=== PATIENT | male | born 1965 | race Caucasian/White ===

== ENCOUNTER 2017-01-25 15:51 | Emergency (ER) | payer BC ==
[~2017-01-25] VITALS: Ht 160 cm; Wt 67.3 kg
[~2017-01-25 15:51] MED LIST: CHIA1POW PO; LEVO-14 PO
[2017-01-25 15:56] VITALS: TEMP 36.7; Ht 160 cm; Wt 67.3 kg
--- NOTE | 2017-01-25 16:28 | EMERGENCY ROOM VISIT NOTE ---
History First contact with patient: 16:01 Chief Complaint: SORETHROAT Stated Complaint: SORETHROAT,COUGH History of Present Illness The patient is a 51 year old male who presents to the Emergency Room via private vehicle with complaints of "sore throat, cough and cold. The patient states that he recently traveled to [place], for business when he notes that he developed a sore throat and cough. This has been persistent despite his trial of Mucinex. He states this past Saturday he return to the [place], with persistent symptoms. He has been taking Mucinex 600 mg twice a day without relief. He states this normally works for him. He denies any fevers, chills, night sweats, nausea, vomiting, constipation, diarrhea, chest pain, shortness of breath. Review of Systems A complete 10-point Review of Systems was discussed with the patient, with pertinent positives and negatives listed in the History of Present Illness. All remaining Review of Systems questions can be considered negative unless otherwise specified. Past Medical/Surgical History No pertinent. Social History Smoking Status: Never Smoker Marital Status: Occupation Status: employed Current/Historical Medications Scheduled Azithromycin (Zithromax), 1 PKT PO UD Bhupendra Seed (Bhupendra Seed), 1 TBS PO QAM Levocetirizine Dihydrochloride (Levocetirizine Dihydrochl), 1 TAB PO HS Physical Exam Vital Signs Date Time Temp Pulse Resp B/P (MAP) Pulse Ox O2 Delivery O2 Flow Rate FiO2 01/25/17 17:25 73 18 128/78 97 01/25/17 15:56 36.7 76 18 138/81 96 Room Air Physical Exam VITAL SIGNS - Vital signs and nursing notes were reviewed. Stable. Afebrile. GENERAL -51-year-old male appearing his stated age who is in no acute distress. Communicates well with provider and answers questions appropriately. SKIN - Without rashes. HEAD - NC/AT. EYES - PERRL with EOMI bilaterally. Sclera anicteric. EARS - No deformities of external structures noted on gross examination bilaterally. No pain elicited with palpation of the tragus bilaterally. External auditory canals without discharge or otorrhea. Tympanic membranes pearly cuellar without retraction or bulging. No fluid or purulent material visualized behind the TM. Handle of malleus, umbo, cone of light, pars tensa/ flaccid all easily visualized. NOSE - Midline and without cyanosis. No epistaxis or purulent drainage noted. Septum midline without deviation or septal hematoma noted. MOUTH/OROPHARYNX - Without perioral cyanosis. Buccal mucosa pink and moist and without leukoplakia. Tongue midline with equal elevation of palate bilaterally. No tonsillar hypertrophy, erythema, or exudates noted. Fair dentition noted. NECK - Neck with FROM. Supple to palpation. Slight lymphadenopathy noted. No nuchal rigidity. LUNGS - Chest wall symmetric without accessory muscle use, intercostals retractions, or central cyanosis. Normal vesicular breath sounds CTA B/L. No wheezes, rales, or rhonchi appreciated. CARDIAC - RRR with S1/S2. No murmur, rubs, or gallops appreciated. PSYCH - A&O. Pt is very pleasant and interacts well with examiner. Medical Decision & Procedures ER Provider Diagnostic Interpretation: CHEST 2 VIEWS ROUTINE HISTORY: 51 years-old Male Cough, productive COMPARISON: Chest radiograph 03/10/2014 TECHNIQUE: Frontal and lateral views of the chest FINDINGS: Cardiomediastinal and hilar silhouettes are within normal limits. There is atherosclerosis of the aorta. There is no pneumothorax, pleural effusion or focal airspace consolidation. There is no overt pulmonary edema. The bones of the chest appear grossly intact. Mild degenerative changes involve the shoulders. IMPRESSION: No acute cardiopulmonary process. The above report was generated using voice recognition software. It may contain grammatical, syntax or spelling errors. Electronically signed by: Andrade Baig M.D. 01/25/2017 4:50 PM Dictated Date/Time: 01/25/2017 4:49 PM Medical Decision Patient was seen and evaluated as above. After obtaining a thorough history and physical examination rapid strep was obtained, an x-ray was also obtained. No evidence of pneumonia on examination. No evidence of pneumonia on chest x- ray. No acute cardiopulmonary process. At this time believe the patient is most likely experiencing either seasonal allergies, or early bronchitis. For that reason I will write him a short course of antibiotics, azithromycin. He is to take these if his symptoms progress beyond the next day or so. I informed him if his symptoms progress to the ten-day dale he is to take the antibiotic. His previous laboratory results were reviewed, no indication to renally adjusted this medication. He is to follow-up with his family doctor regarding today's visit. He was educated upon worrisome symptoms which to return, had questions about discharge, and was discharged home in good condition. In evaluation treatment this patient following differential diagnoses were entertained: Bronchitis, pneumonia, strep throat, viral pharyngitis, seasonal allergies, among others. Impression Primary Impression: Sore throat Additional Impression: Cough Departure Information Dispostion Home / Self-Care Condition GOOD Prescriptions Azithromycin (ZITHROMAX) 250 Mg Tab 1 PKT PO UD for 5 Days, #6 TAB Prov: Alonso Nam PA-C 01/25/17 Referrals Jt Mancini M.D. (PCP) Patient Instructions [facility] Additional Instructions You were seen in the emergency department for your sore throat. The results of your rapid strep screen were found to be negative. You will be contacted in 48- 72 hrs if the results of your culture are found to be positive and any change in antibiotics is necessary. You were prescribed Azithromycin to be taken as prescribed. 500mg on day 1 then 250mg on days 2-5. This is an antibiotic. All antibiotics have the potential to cause diarrhea. Stop this medication and contact a medical provider if you were to develop any significant adverse side effects including: wheezing, shortness of breath, passing out, vomiting, or a diffuse rash. Always take antibiotics as directed and COMPLETE the ENTIRE course regardless of the improvement of your symptoms. For pain and fever control, you can use the following [id number] medicines (if >12 yo): - Regular strength (325mg/tab) Tylenol (acetaminophen) 2 tabs every 4-6 hours as needed. Do not exceed 12 tablets in a 24 hour period. Avoid taking more than 3 grams (3000 mg) of Tylenol per day. This includes any other sources of acetaminophen you may take on a regular basis. - For best results, alternate dosing of Tylenol and Advil. In addition to your prescribed medications, you can also use the following home remedies: - Warm salt-water gargles 3 times per day can soothe your throat and help to fight infection. - Warm tea with honey can soothe your throat. Return to the emergency department if your symptoms persist or worsen over the next 2-3 days despite treatment course outlined above. Return to the emergency department if you develop the following symptoms of: inability to swallow solids , liquids, or drool; excessive wheezing or inability to catch your breath; or intractable fever or pain. Follow up with your primary care provider in 2-3 days from today's emergency department visit. Please return to the emergency department for new/concerning symptoms. Problem Qualifiers
--- NOTE | 2017-01-25 16:52 | DIAGNOSTIC IMAGING REPORT ---
CHEST 2 VIEWS ROUTINE HISTORY: 51 years-old Male Cough, productive COMPARISON: Chest radiograph 03/10/2014 TECHNIQUE: Frontal and lateral views of the chest FINDINGS: Cardiomediastinal and hilar silhouettes are within normal limits. There is atherosclerosis of the aorta. There is no pneumothorax, pleural effusion or focal airspace consolidation. There is no overt pulmonary edema. The bones of the chest appear grossly intact. Mild degenerative changes involve the shoulders. IMPRESSION: No acute cardiopulmonary process. The above report was generated using voice recognition software. It may contain grammatical, syntax or spelling errors. Electronically signed by: Andrade Baig M.D. 01/25/2017 4:50 PM Dictated Date/Time: 01/25/2017 4:49 PM
[2017-01-25] MEDS ORDERED: AZIT250T5 PO (17:18)
[2017-01-25 17:25] VITALS: BP 128/78; PULSE 73; O2SAT 97
== END 2017-01-25 17:25 | disposition home or self-care (01) ==
LOC: C.EDB 15:53 → C.EDD 17:25
DX: J02.9 Acute pharyngitis, unspecified (principal); R05 Cough; Z79.899 Other long term (current) drug therapy

== ENCOUNTER 2023-08-17 00:10 | Observation (INO) ==
[2023-08-17 02:19] LABS: Basophils # (auto) 0.04 K/uL (0.00-0.20); Basophils % (auto) 0.7 %; Eosinophils # (auto) 0.45 K/uL (0.00-0.50); Eosinophils % (auto) 7.8 %; Hematocrit (blood only) 41.4 % (42.0-52.0); Hemoglobin 14.4 g/dl (14.0-18.0); Immature Granulocytes # (auto) 0.01 K/uL (0.01-0.20); Immature Granulocytes % (auto) 0.2 %; Lymphocytes # (auto) 1.67 K/uL (1.20-3.40); Lymphocytes % (auto) 28.9 %; Mean Corpuscular Hemoglobin 31.3 pg (25.0-34.0); Mean Corpuscular Hgb Conc 34.8 g/dL (32.0-36.0); Mean Platelet Volume 9.2 fL (9.4-12.4); Monocytes # (auto) 0.52 K/uL (0.11-0.59); Neutrophils # (auto) 3.09 K/uL (1.40-6.50); Neutrophils % (auto) 53.4 %; Platelet Count 224 K/uL (130-400); RDW Coefficient of Variation 13.1 % (11.5-14.5); White Blood Count 5.78 K/ul (4.8-10.8)
[2023-08-17 02:32] LABS: Albumin Globulin Ratio 1.6 (0.9-2); Albumin Level 4.1 gm/dl (3.4-5.0); BUN Creatinine Ratio 19.8 (10-20); Bilirubin,Total 0.7 mg/dl (0.2-1.0); Calcium 8.7 mg/dl (8.6-10.3); Creatinine Clr Calc Pharmacy 61.1 ml/min; Est GFR (African American) 89.2 ml/min; Globulin 2.6 gm/dl (2.5-4.0); Potassium 3.7 mmol/L (3.5-5.1); Total Protein 6.7 gm/dl (6.0-8.3)
[2023-08-17 02:38] LABS: Troponin I High Sensitivity 6.8 pg/ml (0-20)
[2023-08-17] MEDS: OPTIRAY 320 125ml IV ONE (03:09)
--- NOTE | 2023-08-17 05:23 | Emergency Department Note ---
Impression & Plan [facility]ient ischemic attack[facility] NAME: ANDI MITCHELL AGE: 57 SEX: Male INFORMANT: Patient ED PROVIDER(S): Danii Penny DO CHIEF COMPLAINT: Right arm numbness and facial numbness PLAN: Disposition: Admit to the [facility] MEDICAL DECISION MAKING: This is a 57-year-old male patient who presents to the emergency department complaining of numbness to his right arm and face that was very mild and has since resolved. He denies ever having an episode of numbness like this in the past. He does give a history of some muscle spasms/twitches that have been occurring in his left shoulder/left upper extremity for which he is scheduled to have an EMG on August 27. CT scan of the brain, CTA of the brain, and CTA of the neck were all negative for any acute findings. Laboratory studies revealed a glucose of 118. White blood cell count was normal. H&H were normal. Renal function was normal. Troponin was negative. Care/management discussed with: None Level of care consideration(s): After review of the information above and other included data, I feel the patient can be managed safely as an outpatient/could have required admission but improved significantly and is stable for discharge/requires escalation of care to admission. Triage Nursing notes: Reviewed and agree with them. Vital Signs: reviewed and unremarkable Differential Diagnosis: TIA, CVA, intracranial hemorrhage Diagnostics, independently interpreted by me: ECG: Normal sinus rhythm at 74. With no ST segment elevation or signs of ischemia. There is no ectopy. Cardiac Monitoring: Normal sinus rhythm at 68 Imaging studies: CT scan of the brain: As per stat rad CTA of the brain: As per stat rad CTA of the neck: As per stat rad HPI: 57 year old Male arrives for evaluation of numbness. Around 11 PM this evening, the patient noted moderate numbness to the right side of his face. He then remembered around 8 PM earlier in the evening he did have some slight numbness to his right arm which had resolved. Patient denies ever having neurological symptoms like this in the past. PAST MEDICAL HISTORY: See Below, PAST SURGICAL HISTORY: See Below, SOCIAL HISTORY: See Below, HOME MEDICATIONS: See list ALLERGIES: See list VITALS: See Below PHYSICAL EXAMINATION: HEENT: Head - normocephalic and atraumatic. Pupils are equal, round, and reactive to light. Extraocular eye muscles are intact and sclera are anicteric. Ears - bilaterally patent canals with noninjected tympanic membranes and no evidence of hemotympanum. Nose - moist nasal mucosa without discharge. Mouth - moist buccal mucosa. Oropharynx is nonerythematous and there is no tonsillar exudate or edema noted. Neck: Supple; no JVD, nuchal rigidity, cervical lymphadenopathy, or auscultated bruits. Heart: Regular rate and rhythm. There is a normal S1 and S2 with no murmurs, clicks, or gallops appreciated. Lungs: Clear to auscultation bilaterally with no wheezes, rales, or rhonchi. Abdomen: Soft, completely nontender, nondistended, with good bowel sounds. There are no palpable pulsatile masses or hepatosplenomegaly. There is no guarding, rigidity, or rebound noted. Extremities: No evidence of cyanosis, clubbing, or edema. There are easily palpable peripheral pulses. Neuro:The patient is awake and alert, oriented to day, time, and place. Muscle strength is 5/5 in all 4 extremities. 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 There are no cerebellar signs. Cranial nerves II through XII are grossly intact. Finger-nose testing was normal. Sensation in both upper extremities was normal. Emergency department course: The patient was evaluated in room A-10. A complete history and physical was performed. A twelve-lead EKG was obtained as described above. An order was placed for continuous cardiac monitoring. Patient was in a normal sinus rhythm at a rate of 68. Patient went for CT scan of the brain along with CTA of the brain and neck. I reviewed the results of the studies with the patient and his . I discussed the case with the [facility] Hospitalist and they will evaluate for further inpatient care and workup of TIA. Past Med/Surg History Medical History Skin abrasion Heart rate fast PPD positive Microscopic hematuria Hyperlipidemia Herpes simplex Enlarged prostate Elevated bilirubin Allergic rhinitis due to pollen Seasonal allergies Surgical History H/O oral surgery Family History Other Diabetes Stroke Denies family history of Colon cancer Ovarian cancer Prostate cancer Myocardial infarction Breast cancer Social History Smoking Status: Former smoker Tobacco Type: Cigarettes Hx Alcohol Use: Yes Hx Substance Use: No Preferred Language: Venezuelan marital status: Current Living Situation: Spouse current occupational status: employed Feels Safe at Home: Yes Allergies Allergies Allergy/AdvReac Type Severity Reaction Status Date / Time POLLEN Allergy Intermediate SNEEZING, Uncoded 08/17/23 02:19 CONGESTION Home Meds Previous Rx's Medication Instructions Recorded levocetirizine 5 mg tablet 5 mg PO DAILY #90 tabs 06/05/22 Results & Data (ED) Vital Signs Vital Signs - 24 hr 08/17/23 00:12 08/17/23 00:27 08/17/23 00:27 Temperature 36 C L Temperature Source Temporal Artery Scan Pulse Rate 86 77 Pulse Rate [Apical] Pulse Rate from SpO2 Sensor Pulse Rhythm [Apical] Pulse Strength [Apical] Respiratory Rate 16 Respiratory Effort / Characteristics Non-Labored Spontaneous Respiratory Depth Normal Respiratory Pattern Regular Blood Pressure 137/84 126/88 Blood Pressure [Right Arm] Blood Pressure Mean 101 95 Blood Pressure Mean [Right Arm] Blood Pressure Position [Right Arm] Pulse Oximetry 97 Oxygen Delivery Method Room Air Sepsis Recent Fever Within 48 Hours No Sepsis New/Unexplained Change in Mental Status No Sepsis Action Taken by Nursing No Action Required 08/17/23 00:28 08/17/23 00:30 08/17/23 01:00 Temperature Temperature Source Pulse Rate 79 77 74 Pulse Rate [Apical] Pulse Rate from SpO2 Sensor 80 77 74 Pulse Rhythm [Apical] Pulse Strength [Apical] Respiratory Rate 14 19 22 Respiratory Effort / Characteristics Respiratory Depth Respiratory Pattern Blood Pressure Blood Pressure [Right Arm] Blood Pressure Mean Blood Pressure Mean [Right Arm] Blood Pressure Position [Right Arm] Pulse Oximetry 98 98 96 Oxygen Delivery Method Sepsis Recent Fever Within 48 Hours Sepsis New/Unexplained Change in Mental Status Sepsis Action Taken by Nursing 08/17/23 01:30 08/17/23 02:00 08/17/23 02:01 Temperature Temperature Source Pulse Rate 66 72 67 Pulse Rate [Apical] Pulse Rate from SpO2 Sensor 65 Pulse Rhythm [Apical] Pulse Strength [Apical] Respiratory Rate 17 21 22 Respiratory Effort / Characteristics Respiratory Depth Respiratory Pattern Blood Pressure 117/78 Blood Pressure [Right Arm] Blood Pressure Mean 91 Blood Pressure Mean [Right Arm] Blood Pressure Position [Right Arm] Pulse Oximetry 96 Oxygen Delivery Method Sepsis Recent Fever Within 48 Hours Sepsis New/Unexplained Change in Mental Status Sepsis Action Taken by Nursing 08/17/23 02:01 08/17/23 02:02 08/17/23 02:30 Temperature Temperature Source Pulse Rate 100 H Pulse Rate [Apical] Pulse Rate from SpO2 Sensor Pulse Rhythm [Apical] Pulse Strength [Apical] Respiratory Rate 17 Respiratory Effort / Characteristics Respiratory Depth Respiratory Pattern Blood Pressure 117/78 Blood Pressure [Right Arm] Blood Pressure Mean 85 Blood Pressure Mean [Right Arm] Blood Pressure Position [Right Arm] Pulse Oximetry 96 Oxygen Delivery Method Room Air Sepsis Recent Fever Within 48 Hours Sepsis New/Unexplained Change in Mental Status Sepsis Action Taken by Nursing 08/17/23 04:00 08/17/23 04:02 08/17/23 04:02 Temperature Temperature Source Pulse Rate 90 Pulse Rate [Apical] 80 Pulse Rate from SpO2 Sensor Pulse Rhythm [Apical] Regular Pulse Strength [Apical] Normal Respiratory Rate 16 12 Respiratory Effort / Characteristics Non-Labored Respiratory Depth Normal Respiratory Pattern Regular Blood Pressure 117/78 Blood Pressure [Right Arm] 117/78 Blood Pressure Mean 86 Blood Pressure Mean [Right Arm] 91 Blood Pressure Position [Right Arm] Sitting Pulse Oximetry 94 Oxygen Delivery Method Room Air Sepsis Recent Fever Within 48 Hours Sepsis New/Unexplained Change in Mental Status Sepsis Action Taken by Nursing 08/17/23 04:34 08/17/23 04:34 08/17/23 05:00 Temperature Temperature Source Pulse Rate 85 Pulse Rate [Apical] Pulse Rate from SpO2 Sensor Pulse Rhythm [Apical] Pulse Strength [Apical] Respiratory Rate 21 Respiratory Effort / Characteristics Respiratory Depth Respiratory Pattern Blood Pressure 127/80 101/68 Blood Pressure [Right Arm] Blood Pressure Mean 94 80 Blood Pressure Mean [Right Arm] Blood Pressure Position [Right Arm] Pulse Oximetry Oxygen Delivery Method Sepsis Recent Fever Within 48 Hours Sepsis New/Unexplained Change in Mental Status Sepsis Action Taken by Nursing 08/17/23 05:00 08/17/23 05:30 08/17/23 06:00 Temperature Temperature Source Pulse Rate 75 73 Pulse Rate [Apical] Pulse Rate from SpO2 Sensor Pulse Rhythm [Apical] Pulse Strength [Apical] Respiratory Rate 21 16 Respiratory Effort / Characteristics Respiratory Depth Respiratory Pattern Blood Pressure 104/65 Blood Pressure [Right Arm] Blood Pressure Mean 68 Blood Pressure Mean [Right Arm] Blood Pressure Position [Right Arm] Pulse Oximetry Oxygen Delivery Method Sepsis Recent Fever Within 48 Hours Sepsis New/Unexplained Change in Mental Status Sepsis Action Taken by Nursing 08/17/23 06:00 08/17/23 06:30 08/17/23 07:00 Temperature Temperature Source Pulse Rate 74 71 66 Pulse Rate [Apical] Pulse Rate from SpO2 Sensor Pulse Rhythm [Apical] Pulse Strength [Apical] Respiratory Rate 21 24 19 Respiratory Effort / Characteristics Respiratory Depth Respiratory Pattern Blood Pressure 95/60 L Blood Pressure [Right Arm] Blood Pressure Mean 71 Blood Pressure Mean [Right Arm] Blood Pressure Position [Right Arm] Pulse Oximetry Oxygen Delivery Method Sepsis Recent Fever Within 48 Hours Sepsis New/Unexplained Change in Mental Status Sepsis Action Taken by Nursing Laboratory Data 08/17/23 01:58 08/17/23 01:58 Lab Results 08/17/23 08/17/23 Range/Units 01:58 Unknown WBC 5.78 Cancelled (4.8-10.8) K/ul RBC 4.60 L Cancelled (4.70-6.10) M/uL Hgb 14.4 Cancelled (14.0-18.0) g/dl Hct 41.4 L Cancelled (42.0-52.0) % MCV 90.0 Cancelled (80.0-100.0) fL MCH 31.3 Cancelled (25.0-34.0) pg MCHC 34.8 Cancelled (32.0-36.0) g/dL RDW Std Deviation 43.0 Cancelled (36.4-46.3) fL RDW Coeff of Trixie 13.1 Cancelled (11.5-14.5) % Plt Count 224 Cancelled (130-400) K/uL MPV 9.2 L Cancelled (9.4-12.4) fL Immature Gran % (Auto) 0.2 Cancelled % Neut % (Auto) 53.4 Cancelled % Lymph % (Auto) 28.9 Cancelled % [place] % (Auto) 9.0 Cancelled % Eos % (Auto) 7.8 Cancelled % Baso % (Auto) 0.7 Cancelled % Neut # (Auto) 3.09 Cancelled (1.40-6.50) K/uL Lymph # (Auto) 1.67 Cancelled (1.20-3.40) K/uL [place] # (Auto) 0.52 Cancelled (0.11-0.59) K/uL Eos # (Auto) 0.45 Cancelled (0.00-0.50) K/uL Baso # (Auto) 0.04 Cancelled (0.00-0.20) K/uL Immature Gran # (Auto) 0.01 Cancelled (0.01-0.20) K/uL Absolute Nucleated RBC Cancelled Nucleated RBC % (auto) Cancelled Neutrophils % (Manual) Cancelled Band Neutrophils % Cancelled Lymphocytes % (Manual) Cancelled Prolymphocyte % Cancelled Reactive Lymphs % (Man) Cancelled Monocytes % (Manual) Cancelled Eosinophils % (Manual) Cancelled Basophils % (Manual) Cancelled Metamyelocytes % (Man) Cancelled Myelocytes % (Man) Cancelled Promyelocytes % (Man) Cancelled Blast Cells % (Manual) Cancelled Plasma Cell % (Manual) Cancelled Other Cells % Cancelled Nucleated RBC % Cancelled Neutrophils # (Manual) Cancelled Band Neutrophils # Cancelled Total Absolute Neuts Cancelled Lymphocytes # (Manual) Cancelled Prolymphocyte # Cancelled Reactive Lymphs # Cancelled Total Abs Lymphocytes Cancelled Monocytes # (Manual) Cancelled Eosinophils # (Manual) Cancelled Basophils # (Manual) Cancelled Metamyelocytes # (Man) Cancelled Myelocytes # (Manual) Cancelled Promyelocytes # (Man) Cancelled Blast Cells # (Man) Cancelled Plasma Cell # (Manual) Cancelled Other Cells # Cancelled Nucleated RBCs # (Man) Cancelled Hypersegmented Neuts Cancelled Hyposegmented Neuts Cancelled Hypogranular Neuts Cancelled Large Granular Lymphs Cancelled # Lrg Granular Lymphs Cancelled Hairy Cells Cancelled Smudge Cells Cancelled Toxic Granulation Cancelled Toxic Vacuolation Cancelled Dohle Bodies Cancelled Elsie Rods Cancelled Platelet Estimate Cancelled Hypogranular Platelets Cancelled Giant Platelets Cancelled Platelet Satelliting Cancelled RBC Morphology Cancelled Polychromasia Cancelled Hypochromasia Cancelled Poikilocytosis Cancelled Basophilic Stippling Cancelled Anisocytosis Cancelled Microcytosis Cancelled Macrocytosis Cancelled Spherocytes Cancelled Pappenheimer Bodies Cancelled Sickle Cells Cancelled Target Cells Cancelled Tear Drop Cells Cancelled Ovalocytes Cancelled Stomatocytes Cancelled [place] Bodies Cancelled Echinocytes Cancelled Acanthocytes (Spur) Cancelled Rouleaux Cancelled RBC Agglutinates Cancelled Schistocytes Cancelled Sezary Cell Cancelled Sodium 135 L Cancelled (136-145) mmol/L Potassium 3.7 Cancelled (3.5-5.1) mmol/L Chloride 102 Cancelled (98-107) mmol/L Carbon Dioxide 26 Cancelled (21-32) mmol/L Anion Gap 7 Cancelled (3-11) BUN 21 Cancelled (6-23) mg/dl Creatinine 1.06 Cancelled (0.6-1.4) mg/dl Est Cr Clr Drug Dosing 61.1 Cancelled ml/min Est GFR ( Amer) 89.2 Cancelled ml/min Est GFR (Non-Af Amer) 77.0 Cancelled ml/min BUN/Creatinine Ratio 19.8 Cancelled (10-20) Glucose 118 H Cancelled (70-99(Fasting)) mg/dl Estimat Average Glucose 120 mg/dl Hemoglobin A1c 5.8 H (4.5-5.6) % Calcium 8.7 Cancelled (8.6-10.3) mg/dl Magnesium 2.0 (1.7-2.4) mg/dl Total Bilirubin 0.7 Cancelled (0.2-1.0) mg/dl AST 18 Cancelled (13-39) U/L ALT 17 Cancelled (7-52) U/L Alkaline Phosphatase 59 Cancelled (34-104) U/L Troponin I High Sens 6.8 Cancelled (0-20) pg/ml Total Protein 6.7 Cancelled (6.0-8.3) gm/dl Albumin 4.1 Cancelled (3.4-5.0) gm/dl Globulin 2.6 Cancelled (2.5-4.0) gm/dl Albumin/Globulin Ratio 1.6 Cancelled (0.9-2) Triglycerides 92 (0-150) mg/dl Cholesterol 203 H (0-200) mg/dl LDL Cholesterol, Calc 119 mg/dl VLDL Cholesterol, Calc 18 (0-30) mg/dl HDL Cholesterol 66 mg/dl Cholesterol/HDL Ratio 3.1 (0-5) Urine Color Yellow Urine Appearance Clear (Clear) Urine pH 6.0 (4.5-7.5) Ur Specific [employer] 1.011 (1.000-1.030) Urine Protein Negative (Negative) Urine Glucose (UA) Negative (Negative) Urine Ketones Negative (Negative) Urine Blood 1+ H (Negative) Urine Nitrite Negative (Negative) Urine Bilirubin Negative (Negative) Urine Urobilinogen Negative (Negative) Ur Leukocyte Esterase Negative (Negative) Urine WBC (Auto) 0 (0-5) /hpf Urine RBC (Auto) 0-4 (0-4) /hpf U Hyaline Cast (Auto) 0 (0-5) /lpf U Epithel Cells (Auto) 0-5 (0-5) /lpf Urine Bacteria (Auto) Negative (Negative) Blood Parasites ID Cancelled Administered Medications Discontinued Medications Aspirin (Aspirin 325 Mg Ectab) 325 mg PO NOW STA Stop: 08/17/23 06:12 Last Admin: 08/17/23 06:44 Dose: 325 mg Documented By: MARGARITA Ioversol (Optiray 320 125ml) 118 ml IV ONCE ONE Stop: 08/17/23 03:10 Last Admin: 08/17/23 03:09 Dose: 118 ml Documented By: PRETTY Imaging Data Radiologist's Impression: Head CT 08/17/23 02:34 Exam(s): CT HEAD Without Contrast EXAM: CT Head Without Intravenous Contrast CLINICAL HISTORY: Reason for exam: neuro deficit, acute stroke suspected. TECHNIQUE: Axial computed tomography images of the head/brain without intravenous contrast. CTDI is 37.78 mGy and DLP is 624.41 mGy-cm. Automated exposure control was utilized for the study. A dose lowering technique was utilized adhering to the principles of ALARA. COMPARISON: Comparison made to prior head CT from April 04, 2011. FINDINGS: Brain: Unremarkable. No hemorrhage. No significant white matter disease. No edema. Ventricles: Unremarkable. No ventriculomegaly. 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 No acute fracture. Soft tissues: Unremarkable. Sinuses: Chronic left ethmoid sinusitis. No acute sinusitis. Mastoid air cells: Unremarkable as visualized. No mastoid effusion. IMPRESSION: No evidence of acute intracranial pathology. Electronically signed by: Shira Watters MD 08/17/23 05:31 AM Head CTA 08/17/23 02:34 Exam(s): CTA HEAD With Contrast IV Amt: 118 cc's optiray 320 EXAM: CT Angiography Head With Intravenous Contrast CLINICAL HISTORY: Reason for exam: neuro deficit, acute stroke suspected. TECHNIQUE: Axial computed tomographic angiography images of the head with intravenous contrast. CTDI is 37.78 mGy and DLP is 624.41 mGy-cm. Automated exposure control was utilized for the study. A dose lowering technique was utilized adhering to the principles of ALARA. MIP reconstructed images were created and reviewed. CONTRAST: Patient received 118 cc's optiray 320 of IV contrast COMPARISON: No relevant prior studies available. FINDINGS: The dural venous sinuses are patent. Right internal carotid artery: No acute findings. Intracranial segment is patent with no significant stenosis. No aneurysm. Right anterior cerebral artery: Unremarkable. No occlusion or significant stenosis. No aneurysm. Right middle cerebral artery: Unremarkable. No occlusion or significant stenosis. No aneurysm. Right posterior cerebral artery: Unremarkable. No occlusion or significant stenosis. No aneurysm. Right vertebral artery: Unremarkable as visualized. Left internal carotid artery: No acute findings. Intracranial segment is patent with no significant stenosis. No aneurysm. Left anterior cerebral artery: Unremarkable. No occlusion or significant stenosis. No aneurysm. Left middle cerebral artery: Unremarkable. No occlusion or significant stenosis. No aneurysm. Left posterior cerebral artery: Unremarkable. No occlusion or significant stenosis. No aneurysm. Left vertebral artery: Unremarkable as visualized. Basilar artery: Unremarkable. No occlusion or significant stenosis. No aneurysm. IMPRESSION: Negative CT angiogram of the head. Electronically signed by: Shira Watters MD 08/17/23 05:33 AM Neck CTA 08/17/23 02:34 Exam(s): CTA NECK With Contrast IV Amt: 118 cc's optiray 320 EXAM: CT Angiography Neck With Intravenous Contrast CLINICAL HISTORY: Reason for exam: neuro deficit, acute stroke suspected. TECHNIQUE: Routine carotid CT angiography protocol was performed with intravenous contrast. NASCET criteria using the distal ICAs for comparison were used for evaluation of stenoses. CTDI is 14.53 mGy and DLP is 7.27 mGy-cm. Automated exposure control was utilized for the study. A dose lowering technique was utilized adhering to the principles of ALARA. MIP reconstructed images were created and reviewed. CONTRAST: Patient received 118 cc's optiray 320 of IV contrast COMPARISON: None. FINDINGS: VASCULATURE: Right common carotid artery: Unremarkable. No occlusion or significant stenosis. No dissection. Right internal carotid artery: Unremarkable. Extracranial segment is patent with no occlusion or significant stenosis. No dissection. Right external carotid artery: Unremarkable. No occlusion. Right vertebral artery: Unremarkable. No occlusion or significant stenosis. No dissection. Left common carotid artery: Unremarkable. No occlusion or significant stenosis. No dissection. Left internal carotid artery: Unremarkable. Extracranial segment is patent with no occlusion or significant stenosis. No dissection. Left external carotid artery: Unremarkable. No occlusion. Left vertebral artery: Unremarkable. No occlusion or significant stenosis. No dissection. NECK: Bones/joints: Unremarkable. No acute fracture. Soft tissues: Unremarkable. Lung apices: Bronchitis, which may be of infectious or inflammatory etiologies. CAROTID STENOSIS REFERENCE USING NASCET CRITERIA: % ICA stenosis = (1 - narrowest ICA diameter/diameter of distal cervical ICA) x 100. Mild - <50% stenosis. Moderate - 50-69% stenosis. Severe - 70-94% stenosis. Near occlusion - 95-99% stenosis. Occluded - 100% stenosis. IMPRESSION: Negative CTA neck. Electronically signed by: Shira Watters MD 08/17/23 05:29 AM Discharge Plan Visit Data Chief Complaint: Neuro Symptoms/Deficit Stated Complaint: NUMBNESS ON RT SIDE OF FACE AND RT ARM SOME ALSO ED Provider: Danii Penny Discharge Problem: TIA (transient ischemic attack) Forms Stand Alone Forms: My [facility] Prescriptions Prescriptions: No Action levocetirizine 5 mg tablet 5 mg PO DAILY Qty: 90 3RF Referrals Referrals: Iesha Amador MD [Primary Care Provider] -
--- NOTE | 2023-08-17 05:30 | CT Scan Report ---
Exam(s): CTA NECK With Contrast IV Amt: 118 cc's optiray 320 EXAM: CT Angiography Neck With Intravenous Contrast CLINICAL HISTORY: Reason for exam: neuro deficit, acute stroke suspected. TECHNIQUE: Routine carotid CT angiography protocol was performed with intravenous contrast. NASCET criteria using the distal ICAs for comparison were used for evaluation of stenoses. CTDI is 14.53 mGy and DLP is 7.27 mGy-cm. Automated exposure control was utilized for the study. A dose lowering technique was utilized adhering to the principles of ALARA. MIP reconstructed images were created and reviewed. CONTRAST: Patient received 118 cc's optiray 320 of IV contrast COMPARISON: None. FINDINGS: VASCULATURE: Right common carotid artery: Unremarkable. No occlusion or significant stenosis. No dissection. Right internal carotid artery: Unremarkable. Extracranial segment is patent with no occlusion or significant stenosis. No dissection. Right external carotid artery: Unremarkable. No occlusion. Right vertebral artery: Unremarkable. No occlusion or significant stenosis. No dissection. Left common carotid artery: Unremarkable. No occlusion or significant stenosis. No dissection. Left internal carotid artery: Unremarkable. Extracranial segment is patent with no occlusion or significant stenosis. No dissection. Left external carotid artery: Unremarkable. No occlusion. Left vertebral artery: Unremarkable. No occlusion or significant stenosis. No dissection. NECK: Bones/joints: Unremarkable. No acute fracture. Soft tissues: Unremarkable. Lung apices: Bronchitis, which may be of infectious or inflammatory etiologies. CAROTID STENOSIS REFERENCE USING NASCET CRITERIA: % ICA stenosis = (1 - narrowest ICA diameter/diameter of distal cervical ICA) x 100. Mild - <50% stenosis. Moderate - 50-69% stenosis. Severe - 70-94% stenosis. Near occlusion - 95-99% stenosis. Occluded - 100% stenosis. IMPRESSION: Negative CTA neck. Electronically signed by: Shira Watters MD 08/17/23 05:29 AM
--- NOTE | 2023-08-17 05:32 | CT Scan Report ---
Exam(s): CT HEAD Without Contrast EXAM: CT Head Without Intravenous Contrast CLINICAL HISTORY: Reason for exam: neuro deficit, acute stroke suspected. TECHNIQUE: Axial computed tomography images of the head/brain without intravenous contrast. CTDI is 37.78 mGy and DLP is 624.41 mGy-cm. Automated exposure control was utilized for the study. A dose lowering technique was utilized adhering to the principles of ALARA. COMPARISON: Comparison made to prior head CT from April 04, 2011. FINDINGS: Brain: Unremarkable. No hemorrhage. No significant white matter disease. No edema. Ventricles: Unremarkable. No ventriculomegaly. 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 No acute fracture. Soft tissues: Unremarkable. Sinuses: Chronic left ethmoid sinusitis. No acute sinusitis. Mastoid air cells: Unremarkable as visualized. No mastoid effusion. IMPRESSION: No evidence of acute intracranial pathology. Electronically signed by: Shira Watters MD 08/17/23 05:31 AM
--- NOTE | 2023-08-17 05:34 | CT Scan Report ---
Exam(s): CTA HEAD With Contrast IV Amt: 118 cc's optiray 320 EXAM: CT Angiography Head With Intravenous Contrast CLINICAL HISTORY: Reason for exam: neuro deficit, acute stroke suspected. TECHNIQUE: Axial computed tomographic angiography images of the head with intravenous contrast. CTDI is 37.78 mGy and DLP is 624.41 mGy-cm. Automated exposure control was utilized for the study. A dose lowering technique was utilized adhering to the principles of ALARA. MIP reconstructed images were created and reviewed. CONTRAST: Patient received 118 cc's optiray 320 of IV contrast COMPARISON: No relevant prior studies available. FINDINGS: The dural venous sinuses are patent. Right internal carotid artery: No acute findings. Intracranial segment is patent with no significant stenosis. No aneurysm. Right anterior cerebral artery: Unremarkable. No occlusion or significant stenosis. No aneurysm. Right middle cerebral artery: Unremarkable. No occlusion or significant stenosis. No aneurysm. Right posterior cerebral artery: Unremarkable. No occlusion or significant stenosis. No aneurysm. Right vertebral artery: Unremarkable as visualized. Left internal carotid artery: No acute findings. Intracranial segment is patent with no significant stenosis. No aneurysm. Left anterior cerebral artery: Unremarkable. No occlusion or significant stenosis. No aneurysm. Left middle cerebral artery: Unremarkable. No occlusion or significant stenosis. No aneurysm. Left posterior cerebral artery: Unremarkable. No occlusion or significant stenosis. No aneurysm. Left vertebral artery: Unremarkable as visualized. Basilar artery: Unremarkable. No occlusion or significant stenosis. No aneurysm. IMPRESSION: Negative CT angiogram of the head. Electronically signed by: Shira Watters MD 08/17/23 05:33 AM
[2023-08-17 06:40] LABS: Chol HDL Ratio 3.1 (0-5)
[2023-08-17] MEDS: ASPIRIN 325 MG ECTAB PO STA (06:44)
[2023-08-17 07:02] LABS: Appearance Urine Clear (Clear); Bacteria Urine Automated Negative (Negative); Bilirubin Urine Negative (Negative); Blood Urine 1+ (Negative); Cast Urine Automated 0 /lpf (0-5); Color Urine Yellow; Epithelial Cell Urine Auto 0-5 /lpf (0-5); Glucose Urine UA Negative (Negative); Ketones Urine Negative (Negative); Leukocyte Esterase Urine Negative (Negative); Nitrite Urine Negative (Negative); Protein Urine Negative (Negative); RBC Urine Automated 0-4 /hpf (0-4); Specific Gravity Urine 1.011 (1.000-1.030); Urobilinogen Urine Negative (Negative); WBC Urine Automated 0 /hpf (0-5)
[2023-08-17 07:20] LABS: Estimated Average Glucose 120 mg/dl; Hemoglobin A1C 5.8 % (4.5-5.6)
--- NOTE | 2023-08-17 07:37 | History & Physical Report ---
Date of Service August 17, 2023 Assessment & Plan (1) Numbness: Plan: Right side of face and RUE With recent ongoing muscle fasciculations in upper back on left, tension in neck, more likely this is a peripheral cause of symptoms but will admit for TIA workup given symptoms currently resolved admit to PCU check brain MRI, ECHO with bubble study monitor on tele for arrhythmias HgbA1c 5.8% indicative of prediabetes-discussed diet change cholesterol excellent-if has CVA, start statin but doubt has TIA or CVA BPs well controlled consult Neuro PT/OT/ST (2) Muscle twitching: Plan: likely from stress, positioning at computer while working resolved when on vacation recommend magnesium supplement on discharge, massage, changing workstation set up has EMG planned in near future (3) Seasonal allergies: Plan: continue levocetirizine daily (4) Microscopic hematuria: Plan: UA here with 1+ blood but no RBCs, previous UA with RBCs f/u with Urology and/or PCP as outpt (5) Prediabetes: Plan: HgbA1C 5.8% discussed dietary changes follow as outpt Plan DVT proph-SCDs Dispo-obs for TIA workup History of Present Illness Chief Complaint: Right facial numbness Primary Care Provider: Iesha Amador MD This patient is a 57 yo male with a h/o seasonal allergies who presents to the ED with c/o numbness to his right arm and face that started the night before. He has been having some muscle spasms/twitches that have been occurring in his left shoulder/left upper back/trapezius region for a few weeks for which he is scheduled to have an EMG on August 27. He became concerned when he started having symptoms on the right side last night. Symptoms are completely resolved now here at hospital. He reports when he recently traveled to [place] to visit family and was essentially on a vacation, all of his twitching and numbness issues completely resolved, but returned when he came back to work. 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 Denies headache, slurred speech, weakness anywhere. No fevers or other issues lately. He does c/o chronic insomnia. CT scan of the brain, CTA of the brain, and CTA of the neck were all negative for any acute findings. Laboratory studies revealed a glucose of 118. White blood cell count was normal. H&H were normal. Renal function was normal. Troponin was negative. He will be admitted for a TIA/CVA workup Allergies Allergy/AdvReac Type Severity Reaction Status Date / Time POLLEN Allergy Intermediate SNEEZING, Uncoded 08/17/23 02:19 CONGESTION Home Medications Medication Instructions Recorded Confirmed Type levocetirizine 5 mg tablet 5 mg PO DAILY #90 tabs 06/05/22 08/17/23 Rx Past Med/Surg History Medical History (Updated 09/02/23 @ 11:34 by Steffanie Vaughn MD) Prediabetes Testicular abnormality Numbness Skin abrasion Heart rate fast PPD positive Microscopic hematuria Hyperlipidemia Herpes simplex Enlarged prostate Elevated bilirubin Allergic rhinitis due to pollen Seasonal allergies Surgical History H/O oral surgery Family History Other Diabetes Stroke Denies family history of Colon cancer Ovarian cancer Prostate cancer Myocardial infarction Breast cancer Social History Smoking Status: Former smoker Tobacco Type: Cigarettes Hx Alcohol Use: Yes Hx Substance Use: No Preferred Language: Kazakh marital status: Current Living Situation: Spouse current occupational status: employed Feels Safe at Home: Yes Physical Exam Constitutional: WD/WN, vitals as above Eyes: PERRL, conjunctivae normal, anicteric sclerae ENMT: external ear and nose normal, oropharynx normal Neck: trachea midline, no thyromegaly Respiratory: normal respiratory effort, lungs clear to auscultation Cardiovascular: RRR, no murmur, no edema Chest (Breasts): Chest: normal inspection of chest Gastrointestinal (Abdomen): normal bowel sounds, soft, nontender, no hepatosplenomegaly Musculoskeletal: Extremities: extremities normal to inspection; no cyanosis and no clubbing Skin: no rashes, warm and dry Neurologic: patellar DTR's 2+ bilat, sensation intact and PERRL, EOMI, accommodation nl, no face palsy, no dysarthria moves all extremities and awake; no focal motor deficits Speech / Cognition: normal speech Psychiatric: A+Ox3, euthymic affect Lymphatic: no lymphedema Results & Data Results & Data Vital Signs (Past 12 Hours) Vital Signs Temp Pulse Pulse Resp BP BP Pulse Ox 08/17/23 07:00 66 19 95/60 L 08/17/23 06:30 71 24 08/17/23 06:00 74 21 08/17/23 06:00 104/65 08/17/23 05:30 73 16 08/17/23 05:00 75 21 08/17/23 05:00 101/68 08/17/23 04:34 85 21 08/17/23 04:34 127/80 08/17/23 04:02 117/78 08/17/23 04:02 90 12 08/17/23 04:00 80 16 117/78 94 08/17/23 02:30 100 H 17 08/17/23 02:02 96 08/17/23 02:01 117/78 08/17/23 02:01 67 22 08/17/23 02:00 72 21 08/17/23 01:30 66 17 117/78 96 08/17/23 01:00 74 22 96 08/17/23 00:30 77 19 98 08/17/23 00:28 79 14 98 08/17/23 00:27 126/88 08/17/23 00:27 77 08/17/23 00:12 36 C L 86 16 137/84 97 O2 Del Method 08/17/23 07:00 08/17/23 06:30 08/17/23 06:00 08/17/23 06:00 08/17/23 05:30 08/17/23 05:00 08/17/23 05:00 08/17/23 04:34 08/17/23 04:34 08/17/23 04:02 08/17/23 04:02 08/17/23 04:00 Room Air 08/17/23 02:30 08/17/23 02:02 Room Air 08/17/23 02:01 08/17/23 02:01 08/17/23 02:00 08/17/23 01:30 08/17/23 01:00 08/17/23 00:30 08/17/23 00:28 08/17/23 00:27 08/17/23 00:27 08/17/23 00:12 Room Air Laboratory Results CBC, CMP, troponin, UA reviewed Diagnostic Findings CT head, CTA head/neck reviewed ECG Additional Comments: NSR, normal rate, no ischemic changes Code Status & VTE Plan VTE Prophylaxis Plan VTE Prophylaxis will be ordered: Yes PG Care Time/CCT Total # of Minutes Spent Total Time Spent with Patient: Total time spent is greater than 50% in coordination of care (as documented) at patient's floor/unit and/or counseling patient: Coding Level of Care Code 30389 INT INP/OBS CARE 2/55MIN Diagnoses Numbness R20.0 Muscle twitching R25.3 Seasonal allergies J30.2 Microscopic hematuria R31.29 Prediabetes R73.03
[2023-08-17] MEDS: GADOBUTROL 30ML VIAL IV ONE (09:47)
--- NOTE | 2023-08-17 10:09 | Magnetic Resonance Report ---
MRI OF THE BRAIN WITHOUT AND WITH IV CONTRAST CLINICAL HISTORY: TIA/CVA?. Right facial and arm numbness. COMPARISON STUDY: Head CT and CTA of the head performed earlier today. TECHNIQUE: Utilizing a 1.5 Manjula magnet and dedicated coil, multiplanar, multiecho imaging of the br ain was performed pre and postcontrast administration. IV administration of 6.3 mL of Gadavist contr ast was uneventful. FINDINGS: There are no foci of restricted diffusion to suggest acute infarct. No acute intracranial h emorrhage, midline shift or mass effect is present. Brain volume is normal. Ventricular system is nor mal. Basal cisterns are patent. Flow-voids for the major intracranial vessels are present. There is n o intracranial mass or pathologic enhancement. Punctate white matter T2 hyperintense focus within the right frontal lobe is of doubtful significance. Orbits are unremarkable. There is no evidence for si nusitis. There is no mastoid fluid. IMPRESSION: Unremarkable MRI of the brain. ACT 112: Negative or not required by law. Electronically signed by: Callum Ma M.D. 08/17/2023 10:07 AM
--- NOTE | 2023-08-17 11:02 | Neurology Consultation ---
Date of Consultation August 17, 2023 Assessment & Plan (1) Numbness: History of Present Illness Attending Physician: Steffanie Vaughn MD History of Present Illness pt this morning feeling back to baseline. resolved face numbness. very anxious about all symptoms. mri brain negative. chart reviewed. admission HPI:This is a 57-year-old male patient who presents to the emergency department complaining of numbness to his right arm and face that was very mild and has since resolved. He denies ever having an episode of numbness like this in the past. He does give a history of some muscle spasms/twitches that have been occurring in his left shoulder/left upper extremity for which he is scheduled to have an EMG on August 27. CT scan of the brain, CTA of the brain, and CTA of the neck were all negative for any acute findings. Laboratory studies revealed a glucose of 118. White blood cell count was normal. H&H were normal. Renal function was normal. Troponin was negative. Allergies Allergy/AdvReac Type Severity Reaction Status Date / Time POLLEN Allergy Intermediate SNEEZING, Uncoded 08/17/23 02:19 CONGESTION Home Medications Medication Instructions Recorded Confirmed Type levocetirizine 5 mg tablet 5 mg PO DAILY #90 tabs 06/05/22 08/17/23 Rx Patient History Medical History (Updated 08/17/23 @ 11:02 by Jt Self MD) Numbness Skin abrasion Heart rate fast PPD positive Microscopic hematuria Hyperlipidemia Herpes simplex Enlarged prostate Elevated bilirubin Allergic rhinitis due to pollen Seasonal allergies Surgical History H/O oral surgery Family History Other Diabetes Stroke Denies family history of Colon cancer Ovarian cancer Prostate cancer Myocardial infarction Breast cancer Social History Smoking Status: Former smoker Tobacco Type: Cigarettes Hx Alcohol Use: Yes Hx Substance Use: No Preferred Language: Yi marital status: Current Living Situation: Spouse current occupational status: employed Feels Safe at Home: Yes Exam (Neuro) Physical Exam: HEENT: normocephalic Neuro: Mental: AOx4, fluent speech, normal comprehension, no apraxia, CN: PERRL, Full EOM, symmetric face, intact sensation t/o face, Motor: No abnormal movements, normal tone and bulk, 5/5 t/o bilaterally grossly. Sens: intact to touch b/l grossly Coord: intact FNT b/l Impression: 57 yo male with resolved nonspecific rt face numbness in setting of likely anxiety. mri and CTA head/neck negative. labs negative. Recommendations: no need for further stroke work up reassured pt. avoid dehydration and insomnia improve stress ok for discharge discussed with hospitalist. Chart reviewed I have spent more than 50% educating patient about potential diagnosis and neurological evaluation and coordinating care with patient's treatment team. Total time spent (including chart review and coordination of care): 45 min (this includes chart review). Results & Data Vital Signs (Past 12 Hours) Vital Signs Temp Pulse Pulse Resp BP BP Pulse Ox 08/17/23 09:00 66 19 96 08/17/23 09:00 98/67 L 08/17/23 08:37 76 08/17/23 08:30 76 24 97 08/17/23 08:00 98/66 L 08/17/23 08:00 67 16 96 08/17/23 07:30 67 16 95 08/17/23 07:00 66 19 95/60 L 08/17/23 06:30 71 24 08/17/23 06:00 74 21 08/17/23 06:00 104/65 08/17/23 05:30 73 16 08/17/23 05:00 75 21 08/17/23 05:00 101/68 08/17/23 04:34 85 21 08/17/23 04:34 127/80 08/17/23 04:02 117/78 08/17/23 04:02 90 12 08/17/23 04:00 80 16 117/78 94 08/17/23 02:30 100 H 17 08/17/23 02:02 96 08/17/23 02:01 117/78 08/17/23 02:01 67 22 08/17/23 02:00 72 21 08/17/23 01:30 66 17 117/78 96 08/17/23 01:00 74 22 96 08/17/23 00:30 77 19 98 08/17/23 00:28 79 14 98 08/17/23 00:27 126/88 08/17/23 00:27 77 08/17/23 00:12 36 C L 86 16 137/84 97 O2 Del Method 08/17/23 09:00 08/17/23 09:00 08/17/23 08:37 08/17/23 08:30 08/17/23 08:00 08/17/23 08:00 08/17/23 07:30 08/17/23 07:00 08/17/23 06:30 08/17/23 06:00 08/17/23 06:00 08/17/23 05:30 08/17/23 05:00 08/17/23 05:00 08/17/23 04:34 08/17/23 04:34 08/17/23 04:02 08/17/23 04:02 08/17/23 04:00 Room Air 08/17/23 02:30 08/17/23 02:02 Room Air 08/17/23 02:01 08/17/23 02:01 08/17/23 02:00 08/17/23 01:30 08/17/23 01:00 08/17/23 00:30 08/17/23 00:28 08/17/23 00:27 08/17/23 00:27 08/17/23 00:12 Room Air PG Care Time/CCT Total # of Minutes Spent Total Time Spent with Patient: Total time spent is greater than 50% in coordination of care (as documented) at patient's floor/unit and/or counseling patient: Coding Level of Care Code 51957 IN/OBS CONSULT LVL 3,45M Diagnoses Numbness R20.0
--- NOTE | 2023-08-17 11:14 | Discharge Summary ---
Discharge Summary Date of Service August 17, 2023 Notes For Next Care Provider f/u for EMG/NCS as planned Medication Changes From Visit None Principal Dx & Hospital Course #1 = Principal Diagnosis (1) Numbness: Right side of face and RUE With recent ongoing muscle fasciculations in upper back on left, tension in neck, more likely this is a peripheral cause of symptoms- admitted for TIA workup given symptoms currently resolved admit to PCU-NSR on tele brain MRI negative for CVA, ECHO with bubble study normal HgbA1c 5.8% indicative of prediabetes-discussed diet change cholesterol excellent-no statin needed as do not suspect TIA/CVA BPs well controlled consult Neuro appreciated-attributed symptoms to anxiety Likely from muscle spasm/tension in neck causing symptoms in face and upper extremities advised magnesium supplement, massage, and f/u EMG/NCS as planned next week (2) Muscle twitching: likely from stress, positioning at computer while working resolved when on vacation recommend magnesium supplement on discharge, massage, changing workstation set up has EMG planned in near future (3) Seasonal allergies: continue levocetirizine daily (4) Microscopic hematuria: UA here with 1+ blood but no RBCs, previous UA with RBCs f/u with Urology and/or PCP as outpt (5) Prediabetes: HgbA1C 5.8% discussed dietary changes follow as outpt Plan DVT proph-SCDs Dispo-dc to home Discharge Exam Constitutional WD/WN, vitals as above Eyes PERRL, conjunctivae normal, anicteric sclerae ENMT external ear and nose normal, oropharynx normal Neck trachea midline, no thyromegaly Respiratory normal respiratory effort, lungs clear to auscultation Cardiovascular RRR, no murmur, no edema Chest (Breasts) Chest: normal inspection of chest Gastrointestinal (Abdomen) normal bowel sounds, soft, nontender, no hepatosplenomegaly Musculoskeletal Extremities: extremities normal to inspection; no cyanosis and no clubbing Skin no rashes, warm and dry Neurologic patellar DTR's 2+ bilat, sensation intact and PERRL, EOMI, accommodation nl, no face palsy, no dysarthria moves all extremities and awake; no focal motor deficits Speech / Cognition: normal speech Psychiatric A+Ox3, euthymic affect Lymphatic no lymphedema Updated Medication List Medication Instructions Recorded Confirmed Type levocetirizine 5 mg tablet 5 mg PO DAILY #90 tabs 01/03/23 03/16/24 Rx Hospital Stay Data Consultations 08/17/23 06:07 ED Decision to Admit Stat 08/17/23 07:43 Consult Neurology Routine Diagnostic Imagining Performed 08/17/23 02:34 CT angio head w con Stat CT angio neck with con Stat CT head/brain wo con Stat 08/17/23 06:11 MRI Brain [MR brain wo/w con] Stat ECHO Discharge Instructions Given to Patient (Per Discharging Provider) You were admitted for numbness in your face and arm. You had an extensive workup for neurological issues and cardiac issues and this was all normal. You did NOT have a stroke or a mini stroke. 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 It is recommended that you take magnesium at nighttime to help with the muscle twitches and this will also help with sleep. You can also try stretching exercises, increase your exercise level, and get a professional massage. It was a pleasure meeting you! -Steffanie Vaughn M.D. Total Time Total Time Spent Total Time Spent (In Minutes): 45 min Total Time Includes: Examination of the Patient, Discharge Planning, Medication Reconciliation and Communication With Other Providers (Neurology) Coding Level of Care Code INP/OBS EV SAME DAY LV 2,70MIN Diagnoses Numbness R20.0 Muscle twitching R25.3 Seasonal allergies J30.2 Microscopic hematuria R31.29 Prediabetes R73.03
[2023-08-17] MEDS ORDERED: ACETAMINOPHEN 325 MG TAB PO PRN (12:45)
[2023-08-17] MEDS ORDERED: PHARMACIST DISCHARGE MED REC CONSULT PRN (12:45)
[2023-08-17] MEDS ORDERED: ONDANSETRON INJ 2 MG/ML 2 ML VIAL IV PRN (12:45)
[2023-08-17] MEDS ORDERED: POLYETHYLENE (MIRALAX) 17 GM PACK PO PRN (12:45)
--- NOTE | 2023-08-17 13:37 | Electrocardiogram Report ---
Test Reason : Blood Pressure : / mmHG Vent. Rate : 074 BPM Atrial Rate : 074 BPM P-R Int : 124 ms QRS Dur : 076 ms QT Int : 382 ms P-R-T Axes : 044 014 055 degrees QTc Int : 424 ms Normal sinus rhythm Normal ECG When compared with ECG of 13-MAR-2021 22:16, No significant change was found Confirmed by George Monahan ([id number]) on 08/17/2023 1:37:07 PM Referred By: REFERRED SELF Confirmed By:George Monahan
--- NOTE | 2023-08-17 13:52 | XCELERA ---
[id number]
[2023-08-17] MEDS: ENOXAPARIN INJ 40 MG/0.4 ML SYR SQ SCH (14:10)
[2023-08-17] MEDS: CETIRIZINE HCL 10 MG TABLET PO SCH (14:11)
[2023-08-17] MEDS ORDERED: STROKE PATIENT DISCHARGE STA (14:47)
== END 2023-08-17 16:31 | disposition home or self-care (01) ==
LOC: SUATTDRO → 4W 00:10 → ED 00:10 → 4W 09:24
DX: G45.9 Transient cerebral ischemic attack, unspecified; R31.29 Other microscopic hematuria; Z87.891 Personal history of nicotine dependence; R25.3 Fasciculation; R73.03 Prediabetes; Z79.899 Other long term (current) drug therapy; J30.2 Other seasonal allergic rhinitis